=== PATIENT | male | born 1990 | race Hispanic/Latino ===

== ENCOUNTER 2016-12-25 21:01 | Emergency (ER) | payer OTHER ==
[~2016-12-25] VITALS: Ht 182.9 cm; Wt 62.8 kg
[2016-12-25 21:02] VITALS: BP 103/66
[2016-12-25] MEDS ORDERED: NAPROXEN 250 MG TAB PO ONE (21:30)
[2016-12-25] MEDS ORDERED: CIPR-249 PO (22:00)
[2016-12-25] MEDS ORDERED: CIPROFLOXACIN 500 MG TAB PO ONE (22:00)
== END 2016-12-25 22:07 | disposition home or self-care (01) ==
LOC: M ED 21:01
DX: N30.00 Acute cystitis without hematuria (principal); F17.200 Nicotine dependence, unspecified, uncomplicated

== ENCOUNTER 2018-04-27 08:02 | Emergency (ER) | payer OTHER ==
[2018-04-27] MEDS: NS 1,000 ML IV (08:56)
[2018-04-27] MEDS: PROPOFOL 200 MG/20 ML VIAL IV ×4 (09:29→09:34)
== END 2018-04-27 11:23 | disposition home or self-care (01) ==
LOC: M ED 08:02
DX: S43.002A Unspecified subluxation of left shoulder joint, initial encounter (principal); W06.XXXA Fall from bed, initial encounter; Y92.013 Bedroom of single-family (private) house as the place of occurrence of the external cause
CPT/HCPCS: 73020

== ENCOUNTER 2019-05-06 18:23 | Emergency (ER) | payer OTHER ==
[~2019-05-06] VITALS: Ht 182.9 cm; Wt 64.1 kg
[~2019-05-06 18:23] MED LIST: CIPR-249 PO; HYDR-3715 PO
[2019-05-06] MEDS ORDERED: IBUPROFEN 800 MG TAB PO ONE (20:30)
[2019-05-06] MEDS ORDERED: BENZOCAINE 20% GEL 9GM TUBE (ANBESOL MAX STRENGTH) TOP ONE (20:30)
[2019-05-06] MEDS ORDERED: IBUP80TA PO (21:40)
[2019-05-06 21:41] VITALS: BP 102/57
== END 2019-05-06 21:47 | disposition home or self-care (01) ==
LOC: M ED 18:23
DX: K08.89 Other specified disorders of teeth and supporting structures (principal); F17.210 Nicotine dependence, cigarettes, uncomplicated

== ENCOUNTER 2019-08-16 14:31 | Emergency (ER) | payer OTHER ==
[~2019-08-16] VITALS: Ht 182.9 cm; Wt 64.1 kg
[2019-08-16 14:31] VITALS: BP 107/61
[~2019-08-16 14:31] MED LIST changes: +IBUP80TA PO
[2019-08-16 15:35] LABS: INFLUENZA A AMPLIFICATION NEGATIVE (NEGATIVE); INFLUENZA B AMPLIFICATION POSITIVE (NEGATIVE)
[2019-08-16] MEDS ORDERED: ACETAMINOPHEN 325 MG TAB PO ONE (16:00)
[2019-08-16] MEDS ORDERED: OSEL75CA PO (16:01)
== END 2019-08-16 16:06 | disposition home or self-care (01) ==
LOC: M ED 14:31
DX: J10.1 Influenza due to other identified influenza virus with other respiratory manifestations (principal)

== ENCOUNTER 2020-10-11 12:53 | Emergency (ER) | payer OTHER ==
[~2020-10-11] VITALS: Ht 182.9 cm; Wt 67.7 kg
[~2020-10-11 12:53] MED LIST changes: +OSEL75CA PO
[2020-10-11] MEDS ORDERED: BENA25CA4 PO (13:48)
[2020-10-11] MEDS ORDERED: PRED20TA PO (13:48)
[2020-10-11 14:49] VITALS: BP 122/72
== END 2020-10-11 14:52 | disposition home or self-care (01) ==
LOC: M ED 12:53
DX: R21 Rash and other nonspecific skin eruption (principal)

== ENCOUNTER 2020-10-22 15:24 | Emergency (ER) | payer OTHER ==
[~2020-10-22] VITALS: Ht 182.9 cm; Wt 67.7 kg
[~2020-10-22 15:24] MED LIST changes: +BENA25CA4 PO; +PRED20TA PO
[2020-10-22 16:54] LABS: BASO % 0.6 % (0.0-1.0); EOS # 0.1 10^3/uL (0.0-0.5); EOS % 0.9 % (0.0-3.0); HEMATOCRIT 51.5 % (42.0-52.0); HEMOGLOBIN 16.8 g/dl (13.5-17.5); LYMPH # 1.2 10^3/uL (1.5-5.0); MEAN CORPUSCULAR HEMOGLOBIN 28.6 pg (27.0-33.0); MEAN CORPUSCULAR HGB CONC 32.6 g/dl (32.0-36.5); MEAN CORPUSCULAR VOLUME 87.7 fl (80.0-96.0); MONO # 0.9 10^3/uL (0.0-0.8); MONO % 12.7 % (2.0-8.0); NEUTROPHILS # 4.5 10^3/uL (1.5-8.5); NEUTROPHILS % 66.9 % (36.0-66.0); PLATELET COUNT, AUTOMATED 199 10^3/uL (150-450); RED BLOOD COUNT 5.87 10^6/uL (4.30-6.10); WHITE BLOOD COUNT 6.8 10^3/uL (4.0-10.0)
[2020-10-22 17:26] LABS: ALBUMIN 4.4 GM/DL (3.2-5.2); ALT/SGPT 24 U/L (12-78); BILIRUBIN,DIRECT 0.1 MG/DL (0.0-0.2); BILIRUBIN,TOTAL 0.5 MG/DL (0.2-1.0); BLOOD UREA NITROGEN 18 MG/DL (7-18); CARBON DIOXIDE LEVEL 32 MEQ/L (21-32); CHLORIDE LEVEL 104 MEQ/L (98-107); CREATININE FOR GFR 0.94 MG/DL (0.70-1.30); GLOMERULAR FILTRATION RATE > 60.0 (>60); GLUCOSE, FASTING 86 MG/DL (70-100); LIPASE 81 U/L (73-393); POTASSIUM SERUM 4.4 MEQ/L (3.5-5.1); SODIUM LEVEL 138 MEQ/L (136-145); TOTAL PROTEIN 8.3 GM/DL (6.4-8.2)
[2020-10-22] MEDS ORDERED: KETOROLAC 60MG 2ML VIAL IM ONE (18:20)
--- NOTE | 2020-10-22 19:05 | REPVR ---
PROCEDURE INFORMATION: Exam: CT Abdomen And Pelvis Without Contrast Exam date and time: 10/22/2020 6:42 PM Age: 30 years old Clinical indication: Abdominal pain; Flank; Left; Additional info: Flank pain left TECHNIQUE: Imaging protocol: Computed tomography of the abdomen and pelvis without contrast. Radiation optimization: All CT scans at this facility use at least one of these dose optimization techniques: automated exposure control; mA and/or kV adjustment per patient size (includes targeted exams where dose is matched to clinical indication); or iterative reconstruction. COMPARISON: CT ABD PELVIS W/O CONTRAST 12/08/2014 2:31 PM FINDINGS: Liver: Normal. No mass. Gallbladder and bile ducts: Normal. No calcified stones. No ductal dilation. Pancreas: Normal. No ductal dilation. Spleen: Normal. No splenomegaly. Adrenal glands: Normal. No mass. Kidneys and ureters: Normal. No hydronephrosis. Stomach and bowel: Unremarkable. No obstruction. No mucosal thickening. Appendix: No evidence of appendicitis. Intraperitoneal space: Minimal fluid demonstrated in the dependent portion of the pelvis. Vasculature: Unremarkable. No abdominal aortic aneurysm. Lymph nodes: Unremarkable. No enlarged lymph nodes. Urinary bladder: Unremarkable as visualized. Reproductive: The prostate gland demonstrates mild hyperplasia. Bones/joints: Unremarkable. No acute fracture. Soft tissues: Unremarkable. IMPRESSION: 1. Minimal fluid demonstrated in the dependent portion of the pelvis. 2. Mild prostatic hyperplasia. Electronically signed by: Lui Martin On 10/22/2020 19:04:31 PM
[2020-10-22] MEDS ORDERED: KETO10TAB PO (19:21)
[2020-10-22] MEDS ORDERED: LIDO5DIS41 TOP (19:21)
[2020-10-22] MEDS ORDERED: LIDOCAINE 5% (LIDODERM) PATCH TD ONE (19:25)
[2020-10-22 19:44] VITALS: BP 111/71
[2020-10-22] MEDS ORDERED: **NOTE PATIENT COMMENT** MISC XX SCH (21:00)
== END 2020-10-22 19:46 | disposition home or self-care (01) ==
LOC: M ED 15:24
DX: R10.9 Unspecified abdominal pain (principal); N40.1 Benign prostatic hyperplasia with lower urinary tract symptoms
CPT/HCPCS: 74176; 80048; 80076; 81001; 83690; 85025; 96372; 99284; J1885